=== PATIENT | male | born 1965 | race Caucasian/White ===

== ENCOUNTER 2018-07-07 08:00 | Outpatient (CLI) | payer OTHER, SELFPAY ==
--- NOTE | 2018-07-07 08:06 | ETT_ITS ---
*[facility]* *[facility]* [address] [place] [address] Stress Electrocardiography Seun protocol Date of study: 07/07/2018 *PATIENT PRESENTATION* Height: 175.3cm (69in) Blood Pressure: Weight: 85.9kg (189lb) BSA: 2.06m^2 Ordering physician: Sukhi Pereyra Impressions: Normal study after maximal exercise. Summary: 1. Stress ECG conclusions: The stress ECG is negative. Solano treadmill score: 12. This score predicts a low risk of cardiac events. 2. Stress: The target heart rate was achieved. Indication: R06.02. History: REASON FOR VISIT: PT REPORTS NEW SYMPTOMS OF SHORTNESS OF BREATH WITH ACTIVITY LIKE WHILE WALKING AND TALKING AT (A NORMAL PACE) FOR THE PAST MONTH. PT ALSO REPORTS INTERMITTENT CHEST TIGHTNESS FOR THE PAST MONTH. Risk factors: Family history of coronary artery disease. Dyslipidemia. Cholesterol: 176mg/dl. HDL: 35mg/dl. LDL: 100mg/dl. Triglycerides: 267mg/dl. ALLERGIES: PEANUTS. MEDICATIONS: ASPIRIN 81 MG DAILY. MVI 1 TAB DAILY. LORATADINE 10 MG PRN. EXCEDRIN MIGRAINE 2 CAPS PRN. IBUPROFEN 400-600 MG. DEXTROMETHORPHAN POLISTIREX 10 ML PO Q 12 HRS PRN. FLONASE ALLERGY SPRAY 2 SPRAYS PRN . OMEPRAZOLE 20 MG DAILY. TRAZODONE 50-100 MG PO AT HS. SERTRALINE 200 MG DAILY. SIMVASTATIN 20 MG Q HS. Protocol: Seun protocol. Baseline ECG: SINUS RHYTHM. HR 62 BPM. Stress protocol: + +---+ + !Stage !HR !BP (mmHg) ! + +---+ + !Baseline supine !62 !118/72 (87) ! + +---+ + !Baseline standing !69 !120/76 (91) ! + +---+ + !Stage I; 1.7mph, 10degrees; 3 min !103!132/76 (95) ! + +---+ + !Stage II; 2.5mph, 12degrees; 3 min !124!142/80 (101) ! + +---+ + !Stage III; 3.4mph, 14degrees; 3 min!146!180/88 (119) ! + +---+ + !Stage IV; 4.2mph, 16degrees; 3 min !160!186/102 (130)! + +---+ + !Immediate post stress !160!200/98 (132) ! + +---+ + !Recovery; 3 min !86 !166/80 (109) ! + +---+ + !Recovery; 6 min !86 !120/74 (89) ! + +---+ + * Stress results: Maximal heart rate during stress was 160bpm (97% of maximal predicted heart rate). The maximal predicted heart rate was 165bpm. The target heart rate was achieved. The rate-pressure product for the peak heart rate and blood pressure was 19164mx Hg/min. Stress ECG: TREADMILL PORTION OF STRESS TEST ENDED IN 12 MINUTES & 1 SECOND BECAUSE OF FATUGUE. NORMAL HEART RATE AND BLOOD PRESSURE RESPONSE TO EXERCISE MAX HR = 160 % OF TARGET = 96 RARE PVC APPROXIMATE METS ACHIEVED NO ANGINA NO SIGNIFICANT ST SEGMENT CHANGES. UPWARD SLOPING ST SEGMENT DEPRESSIONS IN LEADS V4 & V5 DURING PEAK EXERCISE. ST SEGMENT CHANGES RETURNED TO BASELINE QUICKLY DURING RECOVERY. ABOVE AVERAGE FUNCTIONAL CAPACITY FOR EXERCISE The stress ECG is negative. Solano treadmill score: 12. This score predicts a low risk of cardiac events. Study data: Arie Dykes MD supervised and was readily available during the procedure. This study was interpreted by [facility]. Study status: Routine. Consent: The risks, benefits, and alternatives to the procedure were explained to the patient and informed consent was obtained. Procedure: Initial setup. A baseline ECG was recorded. Surface ECG leads and manual cuff blood pressure measurements were monitored. Heart sounds: Normal. Lung sounds: Normal. Treadmill exercise testing was performed using the Seun protocol. Study completion: The patient tolerated the procedure well and was discharged from the lab. Discharge: The patient left the laboratory in stable condition. Birthdate: Patient birthdate: 1965. Sex: Gender: male. Study date: Study date: 07/07/2018. Study time: 08:06 AM. Electronically signed by Arie Dykes MD 07/07/2018 18:21
== END 2018-07-07 08:20 ==
PROVIDERS: PCP Family Medicine; Visit Provider Family Medicine
DX: R07.89 Other chest pain (principal); R06.02 Shortness of breath; E78.5 Hyperlipidemia, unspecified; Z82.49 Family history of ischemic heart disease and other diseases of the circulatory system
CPT/HCPCS: 93017

== ENCOUNTER 2018-12-27 09:14 | Outpatient (CLI) | payer OTHER, SELFPAY ==
[2018-12-27 10:35] LABS: Cholesterol 162 mg/dL (50-200); Glucose 94 mg/dL (70-100); HDL Cholesterol 33 mg/dL (40-60); LDL CHOLESTEROL 91 mg/dL (<100); Triglyceride 218 mg/dL (30-150)
[2018-12-29 12:19] LABS: Lyme Ab w Rflx to Lyme Confirm Negative
== END 2018-12-27 09:34 ==
PROVIDERS: PCP Family Medicine; Visit Provider Family Medicine
DX: E78.5 Hyperlipidemia, unspecified (principal); M25.50 Pain in unspecified joint
CPT/HCPCS: 36415; 80061; 82947; 83721; 86618

== ENCOUNTER 2020-02-05 01:03 | Outpatient (CLI) | payer BC, SELFPAY ==
[2020-02-05 07:45] LABS: HCT 40.6 % (40.0-50.0); HGB 13.7 g/dL (13.5-17.5); Mean Corp. HGB Concentration 33.7 g/dL (32.0-36.0); Mean Corpuscular Hemoglobin 29.8 pg (27.0-33.0); Mean Corpuscular Volume 88.5 fL (80-95); Mean Platelet Volume 11.1 fL (8.0-11.0); Platelet Count 221 x1000/uL (130-400); RBC 4.59 m/cumm (4.50-6.00); RBC Distribution Width 12.4 % (11.8-14.1); White Blood Cell Count 4.27 k/cumm (4.4-10.8)
[2020-02-05 09:02] LABS: Calculated LDL 64 mg/dL (<100); Cholesterol 134 mg/dL (<200); HDL Cholesterol 33 mg/dL (40-60); TSH (W/Ref FT4) 2.48 uIU/mL (0.36-3.74); Triglyceride 187 mg/dL (<150)
[2020-02-08 13:26] LABS: PSA, Screening 0.5 ng/mL (0.0-3.5)
== END 2020-02-05 01:23 ==
PROVIDERS: PCP Family Medicine; Visit Provider Family Medicine
DX: E03.9 Hypothyroidism, unspecified (principal); E78.5 Hyperlipidemia, unspecified; Z12.5 Encounter for screening for malignant neoplasm of prostate; R53.83 Other fatigue
CPT/HCPCS: 36415; 80061; 84153; 85027; 84443

== ENCOUNTER 2022-05-11 01:16 | Outpatient (CLI) | payer BC, SELFPAY ==
--- OUTSIDE RECORDS SUMMARY | 2022-05-11 01:17 | XMS_ITS | Encounter Summary ---
:1965 Author Organization [facility] Address [address] [place] [address] Care Team Providers Name Role Phone None, Provider Primary Care Provider Unavailable Encounter Details Date Type Department Care Team Description 05/10/2016 Hospital Encounter [facility]- Nel Unknown, Provider, [facility] 0 [facility] [phone] [place] [address] (Work) [phone] Social History Tobacco Use Types Packs/Day Years Used Date Never Assessed Sex Assigned at Date Recorded Not on file documented as of this encounter Discharge Diagnoses Diagnosis Z01.89 Encounter for other specified spe cial examinations-Z01.89[ICD-10-CM] documented in this encounter Discharge Disposition Disposition Code Departure Means Destination Home or Self Half-Way documented in this encounter Plan of Treatment Not on filedocumented as of this encounter Visit Diagnoses Not on filedocumented in this encounter Care Teams Sales & Service Associate Relationship Specialty Start Date End Date None, Provider PCP - General 05/10/16 documented as of this encounter
--- OUTSIDE RECORDS SUMMARY | 2022-05-11 01:17 | XMS_ITS | Encounter Summary ---
:1965 Author Organization [facility] Address [address] [place] [address] Care Team Providers Name Role Phone None, Provider Primary Care Provider Unavailable Encounter Details Date Type Department Care Team Description 02/05/2020 Lab Requisition [facility] Outr Resulting Lab, Pathology & Laboratory Provider [facility] [address] [place] [address] Social History Tobacco Use Types Packs/Day Years Used Date Never Assessed Sex Assigned at Date Recorded Not on file documented as of this encounter Plan of Treatment Not on filedocumented as of this encounter Procedures Procedure Name Priority Date/Time Associated Comments Diagnosis PSA TOTAL, Routine 02/05/2020 7:30 EDT Results for this DIAGNOSTIC procedure are i n the results section. documented in this encounter Results PSA TOTAL, DIAGNOSTIC (02/05/2020 7:30 EDT) Pathologist Sig nature PSA 0.5 0.0 - 3.5 ng/mL [facility] Specimen Blood - Venous blood (substance) Narrative [facility] - 02/08/2020 13:21 EDT NOTE: Serum PSA concentration should not be in terpreted as absolute evidence for the presence or absence of malignant disease. Assayed on Siemens ADVIA Centaur XPT usi ng chemiluminescent technology.??Values obtained by using different assay methods cannot be used interchangeably. Performing Organization Address City/State/ZIP Code Phon e Number [facility] [address] [place] [address] SERVICES documented in this encounter Visit Diagnoses Not on filedocumented in this encounter Care Teams Business Objects Relationship Specialty Start Date End Date None, Provider PCP - General 05/10/16 documented as of this encounter
--- OUTSIDE RECORDS SUMMARY | 2022-05-11 01:17 | XMS_ITS | Encounter Summary ---
:1965 Author Organization [facility] Address [address] [place] [address] Care Team Providers Name Role Phone Unknown, Provider Primary Care Provider Encounter Details Date Type Department Care Team Description 05/06/2016 Results Only [facility]- Cory Mosley Jr., MD [phone] [address] [place], [place] [address] (Wo rk) Social History Tobacco Use Types Packs/Day Years Used Date Never Assessed Sex Assigned at Date Recorded Not on file documented as of this encounter Plan of Treatment Not on filedocumented as of this encounter Procedures Procedure Name Priority Date/Time Associated Diagnosis Comme [facility] SURGICAL PATHOLOGY Routine 05/06/2016 8:57 EDT Re sults for this procedure are i n the results section. documented in this encounter Results SURGICAL PATHOLOGY (05/06/2016 8:57 EDT) Pathology Report: SURGICAL PATHOLOGY REPORT [facility] Reports generated via electronic interface conta in original data; [facility] however they are lacking the format of the original re port. SERVICES Caution should be taken when reading/interpreting unfo rmatted reports. Name: ? ADELINA LITTLE ? Accession #: ? [id number] ? : ? 1965 (Age: 51 ) ??M ? Collect Date: ? 05/06/2016 ? Location: ? [facility] ? Receive Date: ? 6 ? Provider: CORY EASTON JR, MD Copy to: ? Final Pathologic Diagnosis: GALLBLADDER, CHOLECYSTECTOMY: - ??Acute on chronic cholecystitis with cholesterolosi s polyp. - ??Cholelithiasis. - ??One reactive lymph node. Document reviewed and electronically signed by: SHIVA MCKEON MD Report ??Date: 05/10/2016 10:39 By the signature above, the attending physician certif ies that he/she has personally conducted a gross and/or microscopic examin ation of the described specimens and rendered or confirmed the above diagnosi s. Specimen(s) Received: Gallbladder Clinical History: Acute cholecystitis Gross Description: ? Received in formalin labelled with proper patient identification (initials M, R) and gallbladder is a focally fragmented, partially collapsed gallbladder (7.5 x 3.0 x 2.4 cm) with an attached 1.2 cm in length cystic duct. A 0.5 cm in diameter possible periductal lymph node is prese nt. The gallbladder serosa is dusky yañez-brown to green. The gallbladd er lumen contains minimal bile admixed with a few friable black camden culi, measuring up to 0.4 cm in greatest dimension. The mucosal surface is granular and green and shows a 0.3 cm in diameter cholesterol polyp. The gallbladder wall is without are as of induration, measuring up to 0.4 cm in th ickness. Logging Tractor Operator Swamp sections including the polyp submitted, to include the cystic duct margin en face, in 1. ADITHYA Zamora (ASCP) 05/08/2016 11:02 AM End of Report Specimen Performing Organization Address City/State/ZIP Code Phon e Number [facility] [address] [place] [id number] SERVICES documented in this encounter Visit Diagnoses Not on filedocumented in this encounter Care Teams Carbon Coating Machine Operator Relationship Specialty Start Date End Date Unknown, Provider, PCP - General 08/01/13 05/09/16 documented as of this encounter
--- OUTSIDE RECORDS SUMMARY | 2022-05-11 01:17 | XMS_ITS | Encounter Summary ---
:1965 Author Organization [facility] Address [address] [place] [address] Care Team Providers Name Role Phone Unknown, Provider Primary Care Provider Encounter Details Date Type Department Care Team Description 07/31/2013 Results Only [facility] Blayne Dailey , Laboratory Services - [address] AMBER CARNES [address] [place] [address] [place] [address] [phone] Social History Tobacco Use Types Packs/Day Years Used Date Never Assessed Sex Assigned at Date Recorded Not on file documented as of this encounter Plan of Treatment Not on filedocumented as of this encounter Procedures Procedure Name Priority Date/Time Associated Diagnosis Comme [facility] SURGICAL PATHOLOGY Routine 07/31/2013 6:25 EST Re sults for this procedure are i n the results section. documented in this encounter Results SURGICAL PATHOLOGY (07/31/2013 6:25 EST) Pathology Report: SURGICAL PATHOLOGY REPORT DAVID LÓPEZ Reports generated via electronic interface contain alan ginal data; LAB however they are lacking the format of the original re port. Caution should be taken when reading/interpreting unfo rmatted reports. Name: ? ADELINA LITTLE ? Accession #: ? [id number] ? : ? 1965 (Age: 48) ??M ? Collect Date: ? 07/31/2013 ? Location: ? [facility] ? Receive Date: ? 013 ? Provider: BLAYNE DAILEY DO Copy to: RONY HAJI ? Final Pathologic Diagnosis: A. STOMACH, ANTRUM, BIOPSY: - ??Fundic mucosa with mild chronic gastritis and mild proton pump inhibitor effect. - ??Antral mucosa with mild chronic gastritis. - ??No Helicobacter pylori-like organisms identified o n H&E stained section. B. ESOPHAGUS, DISTAL, BIOPSY: - ??Squamous mucosa with elongation and congestion of lamina propria papillae, increased intraepithelial ly mphocytes and basal cell hyperplasia, suggestive of reflux esophagitis. - ??No eosinophilic infiltrate identified. C. ESOPHAGUS, MID, BIOPSY: - ??Squamous mucosa with no significant pathologic fea tures. D. ESOPHAGUS, PROXIMAL, BIOPSY: - ??Squamous mucosa with focal intercellular edema. - ??No eosinophilic infiltrate identified. Document reviewed and electronically signed by: ANDREA MCELROY MD Report ??Date: 08/03/2013 12:37 By the signature above, the attending physician certif ies that he/she has personally conducted a gross and/or microscopic examin ation of the described specimens and rendered or confirmed the above diagnosi s. Specimen(s) Received: A. ??Gastric antrum (#1) B. ??Distal esophagus (#2) C. ??Mid esophagus (#3) D. ??Proximal esophagus (#4) Clinical History: Colorectal Ca screen/reflux Gross Description: A. ?Received in formalin labelled with proper p atient identification (initials M, R) and gastric antrum are two pink-white tissues (0.5 x 0.3 x 0.2 cm and 0.7 x 0.2 x 0.2 cm). Entirely submitted in A1. B. ?Received in formalin labelled with proper p atient identification (initials M, R) and distal esophagus are two pink-white tissues (0.2 x 0.1 x 0.1 cm and 0.4 x 0.2 x 0.1 cm). Entirely submitted in B1. C. ?Received in formalin labelled with proper p atient identification (initials M, R) and mid esophagus are three wh ite pink tissues (0.1 x 0.1 x less than 0.1 cm to 0.3 x 0.3 x 0.1 cm). Entirely subm itted in C1. D. ?Received in formalin labelled with proper p atient identification (initials M, R) and proximal esophagus is a si ngle pink-white tissue fragment (0.5 x 0.2 x 0.1 cm). Submitted intact in D1. Dr. Gilbert 08/01/2013 08:35 AM End of Report Specimen Performing Organization Address City/State/ZIP Code Phon e Number [facility] [address] [place] [address] SERVICES [facility] [address] [place] [address] documented in this encounter Visit Diagnoses Not on filedocumented in this encounter Care Teams Zyglo Technician Relationship Specialty Start Date End Date Unknown, Provider, PCP - General 08/01/13 05/09/16 documented as of this encounter
[2022-05-11 12:19] LABS: Abs Immature Grans 0.04 10^3/uL (0.0-0.06); Absolute Basophil Count 0.07 10^3/uL (0.0-0.2); Absolute Eosinophil Count 0.12 10^3/uL (0.0-0.7); Absolute Lymphocyte Count 1.22 10^3/uL (1.2-3.4); Absolute Monocyte Count 0.45 10^3/uL (0.1-0.8); Absolute Neutrophil Count 3.24 10^3/uL (1.2-6.7); Basophils % 1.4; Eosinophils % 2.3; HCT 46.2 % (40.0-50.0); HGB 15.7 g/dL (13.5-17.5); Immature Grans % 0.8; Lymphocytes % 23.7; MCH 29.7 pg (27.0-33.0); MCV 88 fL (80-95); MPV 11.8 fL (8.0-11.0); Monocytes % 8.8; Platelet Count 203 10^3/uL (130-400); RBC 5.28 10^6/uL (4.36-5.78); RDW 11.9 % (11.8-14.1); RDW-SD 37.9 fL; WBC 5.14 10^3/uL (4.4-10.8)
[2022-05-11 13:00] LABS: ALT 40 U/L (16-63); AST 21 U/L (15-37); Albumin 4.4 g/dL (3.4-5.0); Alkaline Phosphatase 56 U/L (46-116); Anion Gap 5.6 mmol/L (3-11); BUN 15 mg/dL (7-18); Bilirubin, Total 0.6 mg/dL (0.2-1.0); CO2 30.4 mmol/L (21.0-32.0); Calcium 9.3 mg/dL (8.5-10.1); Calculated LDL 83 mg/dL (<100); Chloride 101 mmol/L (98-107); Cholesterol 149 mg/dL (<200); Glucose 79 mg/dL (74-106); HDL Cholesterol 42 mg/dL (40-60); Sodium 137 mmol/L (136-145); Total Protein 7.5 g/dL (6.4-8.2); Triglyceride 120 mg/dL (<150); Vitamin B12 718 pg/mL (193-986)
== END 2022-05-11 01:17 | disposition home or self-care (01) ==
LOC: LOS 01:16
PROVIDERS: PCP Family Medicine; Visit Provider Family Medicine
DX: R10.9 Unspecified abdominal pain (principal); E78.5 Hyperlipidemia, unspecified; D64.9 Anemia, unspecified
CPT/HCPCS: 36415; 80053; 80061; 82607; 85025

== ENCOUNTER 2023-05-10 02:03 | Outpatient (CLI) | payer BC, SELFPAY ==
[2023-05-10 12:22] LABS: Calculated LDL 67 mg/dL (<100); Cholesterol 132 mg/dL (<200); Glucose 91 mg/dL (74-106); HDL Cholesterol 44 mg/dL (40-60); Triglyceride 107 mg/dL (<150)
[2023-05-10 20:10] LABS: PSA, Screening 0.8 ng/mL (<=4.5)
== END 2023-05-10 02:04 | disposition home or self-care (01) ==
PROVIDERS: PCP Family Medicine; Visit Provider Family Medicine
DX: E78.5 Hyperlipidemia, unspecified (principal); R73.9 Hyperglycemia, unspecified; Z12.5 Encounter for screening for malignant neoplasm of prostate
CPT/HCPCS: 36415; 80061; 82947; 84153

== ENCOUNTER 2023-10-28 06:51 | Day surgery (SDC) | payer BC, SELFPAY ==
--- NOTE | 2023-10-28 06:19 | W.ANESPRE ---
General Info Date of Service Date Performed: 10/28/23 Height: 5 ft 9 in Weight: 81.647 kg Body Mass Index (BMI): 26.6 Surgical Procedure: Operation Date: 10/28/23 08:20 Proposed Procedure Side Surgeon p Colonoscopy/Gastroscopy Krishan Rivera MD Meds Allergies and Home Medications Allergies Allergy/AdvReac Type Severity Reaction Status Date / Time peanut Allergy Mild FEEL SICK Verified 10/28/23 07:13 Home Medication Medication Instructions Recorded Multivitamin Over 50 1 tab PO DAILY 03/28/16 loratadine 10 mg tablet (Claritin) 10 mg PO PRN 03/28/16 zkwgjim-mrpdczqffviwd-ofuyoymz 250 2 ea PO PRN PRN 02/25/17 mg-250 mg-65 mg tablet (Excedrin Migraine) ibuprofen 200 mg tablet 400 - 600 mg PO PRN PRN 02/25/17 omeprazole 20 mg capsule,delayed 20 mg PO DAILY #90 tab-caps 12/10/22 release sertraline 100 mg tablet (Zoloft) 150 mg (1.5 x 100 mg) PO DAILY 12/27/22 #135 tabs simvastatin 20 mg tablet (Zocor) 20 mg PO HS #90 tab-caps 12/27/22 trazodone 50 mg tablet 50 mg PO HS #90 tab-caps 02/12/23 aspirin 81 mg tablet,delayed 81 mg PO DAILY 09/26/23 release bisacodyl 5 mg tablet,delayed 5 mg PO ONCE #4 tabs 09/26/23 release (Dulcolax (bisacodyl)) polyethylene glycol 3350 17 17 g PO ONCE #238 grams 09/26/23 gram/dose oral powder Current Visit Medications: Current Medications Generic Name Dose Route Start Last Admin Trade Name Freq PRN Reason Stop Dose Admin Ringer's Solution 1,000 mls @ 80 mls/hr 10/28/23 06:00 IV 11/24/23 23:59 INFUSION DEVI IV Miscellaneous Supplies 1 each 10/28/23 06:00 Iv Access IV 11/24/23 23:59 DIRECTED DEVI Sodium Chloride 0 ml 10/28/23 06:00 Normal Saline Flush 10 Ml Syr IV 11/24/23 23:59 PRN PRN Sodium Chloride 0 ml 10/28/23 06:00 Normal Saline 10 Ml Vial IJ 11/24/23 23:59 DIRECTED PRN Sterile Water 0 ml 10/28/23 06:00 Water,Injection,Sterile 10 Ml Vial IJ 11/24/23 23:59 DIRECTED PRN PFSH Active Problems Active Problems: Problem Status Onset Code Screening for colon cancer Z12.11 Encounter for immunization Z23 Fatigue R53.83 Annual physical exam Z00.00 SALEH (dyspnea on exertion) R06.09 Irritable colon 08/06/13 K58.9 Hyperlipidemia 03/16/13 E78.5 Headache R51 Gastro-esophageal reflux disease with esophagitis K21.0 Disorder characterized by back pain M53.9 Depressive disorder F32.9 Surgical History Surgical History H/O: vasectomy Hx of cholecystectomy H/O right knee surgery EGD - [facility] (07/31/13) DR. Lesly DAILEY COLONOSCOPY 2013 Tobacco Smoking/Tobacco Use Status: Never Passive smoking exposure: No Second hand exposure: Yes Alcohol Alcohol Intake: current Alcohol intake frequency: a few times a week Alcohol type: beer, wine and hard liquor Counseling provided: other Details: cancer risk with any ingestion of ETOH discussed Substance Use Substance use: Never Vital Signs and Lab Results Vital Signs Most Recent Vital Signs in EMR: Temp Pulse Resp BP Pulse Ox 36.2 C L 70 16 126/85 99 10/28/23 07:00 10/28/23 07:00 10/28/23 07:00 10/28/23 07:00 10/28/23 07:00 Lab Results Blood Type / Crossmatch: No Data to Display Complete Blood Count: No Data to Display Complete Metabolic Panel: No Data to Display Liver Function Panel: No Data to Display Coagulation Panel: No Data to Display Cardiac Panel: No Data to Display Arterial Blood Gas: No Data to Display Venous Blood Gas: No Data to Display Pancreas Panel: No Data to Display Thyroid Panel: No Data to Display Infectious Disease: No Data to Display Blood Cultures: No Data to Display Toxicology Panel: No Data to Display Imaging and Studies Imaging and Studies Study information below may be from another EMR and interpreted by another provider. Please see original notes in EMR for more complete details. Stress Test Summary: 07/22: normal study. Anesthesia Assessment and Plan Anesthesia History Personal History: No History of Anesthesia Complications Family History: No Family History of Anesthesia Complications Exercise Tolerance Exercise Tolerance: Metabolic Equivalents>4 Cardiac & Pulmonary Exam Cardiac Exam: Normal S1/S2 Heart Sounds Pulmonary Exam: Clear Bilateral Breath Sounds Implantable Cardiac Device Does patient have a Pacemaker or an ICD?: No Airway Exam Known Difficult Airway: No Mallampati Class: 4 Mouth Opening: Narrow (< 3cm) Thyromental Distance: Less than 3 cm Neck Range of Motion: Full ROM Neck Circumference: Normal Teeth Condition: Normal Dentition ASA Classification ASA Score: ASA 2 Emergency Case?: No NPO Status NPO Status: NPO Clears >2 hours, Solids >8 hours Anesthesia Plan Resuscitation Status: Full Code Anesthesia Technique: General Anesthesia Airway Planned: Natural Airway Monitors Used: Standard Monitors Preoperative Comments:: 58 yo male for EGD/colo. Sig PMHx: GERD (omeprazole), SALEH, depression. never smoker, occ EtOH. Previous Anes: - ECTR, midaz, dieudonne block.
[2023-10-28 07:00] VITALS: BP 126/85; PULSE 70; RESP 16; TEMP 36.2; O2SAT 99
[2023-10-28] MEDS: Lactated Ringers 1,000 ML 80 ML IV (07:12)
[2023-10-28 07:46] VITALS: BMI 26.6
--- NOTE | 2023-10-28 08:10 | W.SURGCON ---
Date of service: 10/28/23 Time of Service: 08:10 Assessment and Plan Assessment and plan (1) Screening for colon cancer: Status: Acute Assessment and plan: 58-year-old man due for surveillance colonoscopy and EGD. Hemodynamically stable and ready for his procedures. Overall plan: EGD and colonoscopy (2) Gastro-esophageal reflux disease with esophagitis: Status: Acute History of Present Illness Narrative: 58-year-old man is here for surveillance colonoscopy. No family history of colon cancer. No personal history of polyps. He has no bowel habit changes or new symptoms of concern. Separately he has long?standing reflux disease. For many years. He says he has a hiatal hernia. He is due for surveillance EGD. PFSH All Active Problems Screening for colon cancer (Acute) Encounter for immunization (Acute) Fatigue (Acute) Annual physical exam (Acute) SALEH (dyspnea on exertion) (Acute) Irritable colon (Acute 08/06/13) neg colonoscopy 2012 Hyperlipidemia (Acute 03/16/13) Headache (Acute) Gastro-esophageal reflux disease with esophagitis (Acute) 2012 EGD gastritis, esophogitis, no hpylori, neg barretts Disorder characterized by back pain (Acute) Depressive disorder (Acute) Surgical History H/O: vasectomy Hx of cholecystectomy H/O right knee surgery EGD - [facility] (07/31/13) DR. Lesly DAILEY COLONOSCOPY 2012 Family History Mother , 72 Essential hypertension Father Essential hypertension Hyperlipidemia Skin cancer Sister , 50 Essential hypertension Depression Maternal Grandfather , 76 Essential hypertension Heart disease Stroke Skin cancer Paternal Grandfather , 50 Alcohol abuse Maternal Grandmother , 80 Essential hypertension Heart disease Alcohol abuse Paternal Grandmother , 92 No problems noted. Social History Smoking/Tobacco Use Status: Never Quit status: has quit before Second Hand Exposure: Yes Smoking risk assessment performed?: Yes Alcohol Intake: current Alcohol Intake frequency: a few times a week Alcohol type: beer, wine and hard liquor Counseling given: Yes Counseling provided: other Details: cancer risk with any ingestion of ETOH discussed Drug use: Never Caregiver/Support person: No Household members: spouse Housing: house Communication Needs: None and Corrective Lenses Do you need help understanding health information?: Never Pets and animals: Yes Pets and animals: dog(s) Sexually active: Yes Do you think of yourself as: straight/heterosexual Current gender identity: male What is your relationship status?: How often do you talk on the phone with friends or family?: three or more times per week How often do you get together with friends or relatives?: once per week Do you belong to any clubs or organized social groups?: no Panel score (0-1 are the most socially isolated patients): 2 What type of physical activity do you participate in: walking Duration: 45-60 minutes/day Frequency: 1-2 times per week Mariposa/Anabaptism: No preference Special mariposa needs: No Seatbelt use: always Helmet use: Yes Helmet use: always Drive intox or ride w/intox otr company truck driver: No Do you feel safe at home: Yes Do you feel safe in your relationship?: Yes Exam Narrative Exam Narrative: General: Nontoxic, comfortable and interactive Neuro: Alert and oriented x 3 Psych: Good mood and affect, good insight and understanding into his conditions Chest: Nonlabored breathing and no wheezing Heart: Regular Results Last Vital Signs Temp 97.2 F L 10/28/23 07:00 Pulse 70 10/28/23 07:00 Resp 16 10/28/23 07:00 BP 126/85 10/28/23 07:00 Pulse Ox 99 10/28/23 07:00
--- NOTE | 2023-10-28 08:15 | W.PM.DSUDISC ---
Date of service: 10/28/23 Time of Service: 08:15 Discharge Plan Disposition Patient Disposition: Home Condition: Good Discharge Details Attending Provider: Krishan Rivera Primary Care Provider: Sukhi Pereyra Home Meds and New Rx's Prescriptions: No Action aspirin 81 mg tablet,delayed release (DR/EC) 81 mg PO DAILY bisacodyl [Dulcolax (bisacodyl)] 5 mg tablet,delayed release (DR/EC) 5 mg PO ONCE Qty: 4 0RF Rx Instructions: Take per colonoscopy instructions provided by ordering providers office polyethylene glycol 3350 17 gram/dose powder 17 g PO ONCE Qty: 238 0RF Rx Instructions: Take per colonoscopy instructions provided by ordering providers office loratadine [Claritin] 10 MG tablet 10 mg PO PRN Multivitamin Over 50 1 tab PO DAILY omeprazole 20 mg capsule,delayed release(DR/EC) 20 mg PO DAILY Qty: 90 3RF sertraline [Zoloft] 100 mg tablet 150 mg PO DAILY Qty: 135 3RF simvastatin [Zocor] 20 mg tablet 20 mg PO HS Qty: 90 3RF trazodone 50 mg tablet 50 mg PO HS Qty: 90 3RF ibuprofen 200 MG tablet 400 - 600 mg PO PRN PRN Excedrin Migraine 1 EACH tablet 2 ea PO PRN PRN Discharge Instructions Additional Instructions: FINDINGS: On upper endoscopy, small hiatal hernia is present. This is probably playing a role in your acid reflux but as long as your symptoms are controlled with medication, you do not have to do anything different. Alternatively, if you want to be off of the antacid medication, antireflux surgery and hiatal hernia repair is an option for you. Again, this is completely elective and is simply an alternative option for symptom relief and control. Stand Alone Forms: Colonoscopy Post Instructions Activity:: Activity as Tolerated Diet:: As Tolerated DS: Diagnosis Discharge Diagnosis (1) Screening for colon cancer: Status: Acute (2) Gastro-esophageal reflux disease with esophagitis: Status: Acute
--- NOTE | 2023-10-28 08:15 | W.PM.ENDDOP ---
Date of service: 10/28/23 Time of Service: 08:15 Endoscopy Report PROCEDURE DESCRIPTION: PROCEDURES PERFORMED: 1. EGD with biopsies PREOPERATIVE DIAGNOSIS: GERD with esophagitis POSTOPERATIVE DIAGNOSIS: Small type I sliding hiatal hernia SURGEON: Ariel Rivera MD INDICATION FOR PROCEDURE: 58-year-old man with longstanding GERD and no significant or obvious lifestyle risk factors. FINDINGS: D2/D3 = normal D1/bulb = normal - no ulcers or inflammation Pylorus = normal Antrum = normal appearance, no ulcers, cold forceps biopsies were taken to rule out H. pylori routinely Body = normal appearance Fundus = normal, no polyps Cardia = normal Hiatus = Hill grade 1 hiatal defect with a tiny (sub-centimeter slide) type I hiatal hernia Distal esophagus = no inflammation, no esophagitis, no Tsang's, no stricture. I took routine biopsies here despite normal appearance. Mid esophagus = normal Proximal esophagus/hypopharynx/vocal cords = normal SURVEILLANCE-INTERVAL/FOLLOW-UP: Unlikely to need another EGD. Patient can continue on antacid medications. If patient wants to be off of antacid medications, then antireflux surgery and hiatal hernia repair can be considered as an option. Specimens: Yes EBL: Minimal COMPLICATIONS: None Procedure in detail: The patient gave written consent and was in agreement with the indications, the potential risks as well as the benefits of the procedure. The patient was taken to the endoscopy suite and laid on their left side. Anesthesia was given which was tolerated well. We performed a timeout and we are in agreement I started the procedure. A well-lubricated endoscope was gently and carefully advanced down the esophagus, into the stomach the scope was and through the pylorus into the duodenum. The scope was then slowly withdrawn with the above-noted findings/interventions. The patient tolerated the procedure well and was then turned for colonoscopy (see separate procedure note).
--- NOTE | 2023-10-28 08:17 | W.COLOREPORT ---
Date of service: 10/28/23 Time of Service: 08:17 Colonoscopy Report Procedure Description: PROCEDURES PERFORMED: 1. Colonoscopy PREOPERATIVE DIAGNOSIS: Surveillance colonoscopy POSTOPERATIVE DIAGNOSIS: Mild diverticulosis SURGEON: Ariel Rivera MD INDICATION FOR PROCEDURE: 58-year-old man due for surveillance colonoscopy. No prior findings on his previous colonoscopies. No family history of colon cancer. No symptoms. FINDINGS: Normal terminal ileum. No polyps. No inflammation. Very minimal/mild diverticular changes in the sigmoid colon. No significant hemorrhoid disease. SURVEILLANCE interval/FOLLOW-UP: 10 years SPECIMENS: None EBL: Minimal COMPLICATIONS: None QUALITY of prep: Excellent Procedure in detail: The patient gave written consent and was in agreement with the indications, the potential risks as well as the benefits of the procedure. He was turned from upper endoscopy (see separate procedure note) and kept in the same position and anesthesia was continued and then I started the colonoscopy portion of the procedure. Digital rectal and visual examination was performed and grossly within normal limits. A well-lubricated flexible colonoscope was then introduced and passed without any notable difficulty all the way to the cecum identified by the ileocecal valve and the appendiceal orifice. The terminal ileum was briefly intubated and looked normal. The scope was then slowly withdrawn with the above-noted findings. The patient tolerated the procedure well and was taken to the PACU in hemodynamically stable condition.
--- NOTE | 2023-10-28 08:35 | STOM_PTH ---
PATIENT: Steve LOPEZ JR LOC: [facility] U#:[id number] AGE/SX: 58/M ROOM: RE10/28/[address]: Krishan Rivera : 1965 BED: DIS: 10/28/2023 SPEC #: [id number] RECD: 10/28/23 12:07 STATUS: BAUDILIO GUERRERO #: [id number] JEAN CARLOS: 10/28/23 08:[address]: Krishan Rivera DEPT: Surgical Specimen RECD BY: Caitlyn Loyola ENTERED: 10/28/23 12:07 SP TYPE: STOMACH OTHR DR: Sukhi Pereyra MD Tissues: 1 - STOMACH BIOPSY 2 - ESOPHAGUS BIOPSY Procedures: GROSS AND MICRO LEVEL 4 Comments: [id number]
[2023-10-28 09:01] VITALS: BP 102/76; PULSE 65; RESP 16; TEMP 36.2; O2SAT 98
--- NOTE | 2023-10-28 09:14 | W.ANESPOSTOP ---
Postoperative Evaluation Date, Time and Location Date Performed: 10/28/23 Time Performed: 09:14 Patient Location: Day Surgery Unit Vital Signs Most Recent Imported Vital Signs: Most Recent Vital Signs Temp Pulse Resp BP Pulse Ox 36.2 C L 65 16 102/76 98 10/28/23 09:01 10/28/23 09:01 10/28/23 09:01 10/28/23 09:01 10/28/23 09:01 Pain Score Most Recent Pain Score: Most Recent Pain Score Pain Level 0 10/28/23 09:01 Assessment Mental Status: Awake (Alert & Oriented to Patient Baseline) Airway and Respiratory Function: Patent airway with normal (patient baseline) respiratory exam Cardiovascular Function: Hemodynamically Stable Hydration Status: Adequately Hydrated Nausea & Vomiting: No Nausea or Vomiting Pain: Pt. Denies Any Pain Peripheral Nerve Block: Patient did not receive a nerve block
[2023-10-28 09:23] VITALS: BP 124/87; PULSE 62; RESP 16; TEMP 36.2; O2SAT 100
== END 2023-10-28 10:01 | disposition home or self-care (01) ==
PROVIDERS: PCP Family Medicine; Visit Provider Student in an Organized Health Care Education/Training Program
PROC: (CPT 45378; principal; 2023-10-28 08:15)
DX: Z12.11 Encounter for screening for malignant neoplasm of colon (principal); K21.00 Gastro-esophageal reflux disease with esophagitis, without bleeding; K44.9 Diaphragmatic hernia without obstruction or gangrene; K57.30 Diverticulosis of large intestine without perforation or abscess without bleeding; K22.89 Other specified disease of esophagus
CPT/HCPCS: 45378; 43239; 00123; 88305; J2405; J2704